=== PATIENT | male | born 1990 | race Caucasian/White ===

== ENCOUNTER 2024-12-19 19:09 | Emergency (ER) | payer OTHER, SELFPAY ==
--- NOTE | ~2024-12-19 | CT_ITS ---
CLINICAL HISTORY: neck pain CT CERVICAL SPINE WITHOUT CONTRAST COMPARISON: None provided. FINDINGS: No evidence of an acute fracture or dislocation within the cervical spine. Straightening of the normal cervical lordosis is noted. Vertebral body heights and alignment are otherwise maintained. Shallow disc protrusions are suspected at C5-C6, C6-C7, and C7-T1 on sagittal image 24. No significant central canal stenosis. No prevertebral soft tissue swelling. No pneumothorax in the lung apices. Apical fibrotic changes are present. IMPRESSION: 1. No evidence of an acute fracture or dislocation. 2. Mild degenerative disc disease is noted. This document has been electronically signed by: Herberth Whitley M.D. on 12/19/2024 22:55:21
[2024-12-19 19:13] VITALS: BP 120/72; PULSE 58; RESP 16; TEMP 36.7; O2SAT 98; BMI 21.7
--- NOTE | 2024-12-19 19:14 | ED_ITS ---
HPI - Neck Pain/Injury General Chief Complaint: General Medical Stated Complaint: camping, woke up with stiff sore neck, worse now Time Seen by Provider: 12/19/24 21:17 Source: patient and family (patient's ) Mode of arrival: ambulatory Limitations: no limitations History of Present Illness ED Provider: Stephy Meadows PA-C HPI Narrative: Patient is a 34 year old assigned male at with no reported medical history presenting to the emergency department today with neck pain. Patient states that he woke up with his neck feeling somewhat stiff and it had gotten much worse as the day went on. Patient states that he did have a recent camping trip but this pain was somewhat present before his trip and now it is much worse. Patient denies any dizziness, lightheadedness, abdominal pain, nausea, vomiting, fever, chills, blurry vision, double vision, loss of vision, chest pain, difficulty breathing, shortness of breath, back pain, night sweats, pain with urination, increased urinary frequency, increased urinary urgency, blood in his urine or stool, syncope or a near syncopal episode, recent trauma or falls, bowel incontinence, bladder incontinence, or any other complaints at this time. Related Data Previous Rx's ?Medication ?Instructions ?Recorded cyclobenzaprine 5 mg tablet 5 mg PO TID PRN muscle spa sm 7 12/19/24 days #21 tabs naproxen 500 mg tablet 500 mg PO BID 7 days #14 tab s 12/19/24 omeprazole 20 mg capsule,delayed 20 mg PO DAILY #7 cap s 12/19/24 release prednisone 20 mg tablet 20 mg PO DAILY 7 days #7 tab s 12/19/24 Allergies Allergy/AdvReac Type Severity Reaction Status Date / Time No Known Allergies Allergy Verified 12/19/24 19:17 Review of Systems 2 Constitutional: Constitutional: Reports no additional constitutional complaints, Denies chills, Denies fever(s) and Denies night sweats Eyes: Eyes: Reports no additional eye complaints, Denies blurry vision, Denies change in vision, Denies diplopia, Denies eye discharge, Denies loss of vision and Denies eye pain ENT: Denies dizziness and Reports neck pain Cardiovascular: Cardiovascular: Reports no additional cardiovascular complaints, Denies chest pain, Denies lightheadedness, Denies Loss of Consciousness and Denies dyspnea Respiratory: Respiratory: Reports no additional respiratory complaints and Denies dyspnea Gastrointestinal: Gastrointestinal: Reports no additional gastrointestinal complaints, Denies abdominal pain, Denies melena, Denies hematochezia, Denies change in bowel habits and Denies change in stool character Genitourinary: Genitourinary: Reports no additional male genitourinary complaints, Denies hematuria, Denies oliguria, Denies difficulty urinating, Denies dysuria, Denies urinary frequency, Denies urinary hesitancy, Denies urinary incontinence and Denies urinary urgency Musculoskeletal: Musculoskeletal: Reports no additional musculoskeletal complaints, Reports neck pain, Denies numbness and Denies tingling Neurologic: Denies dizziness, Denies loss of vision, Denies numbness and Denies tingling Psychiatric: Psychiatric: Reports no additional psychiatric complaints Endocrine: Endocrine: Reports no additional endocrine complaints Hematologic/Lymphatic: Hematologic/Lymphatic: Reports no additional hematologic/lymphatic complaints Allergic/Immunologic: Allergic/Immunologic: Reports no additional allergic/immunologic complaints PMFSH Past Medical History Attestation statement: The following information was validated with the patient. (all information validated with the patient's ) Source: old records reviewed, obtained from family (patient's provided additional history and confirmed the history provided by the patient.) and nursing notes reviewed Physical Exam 2 Vital Signs: Vital Signs: Last Vital Signs Temp 98.3 F 12/19/24 23:06 Pulse 51 12/19/24 23:06 Resp 16 12/19/24 23:06 BP 116/71 12/19/24 23:06 Pulse Ox 99 12/19/24 23:06 O2 Del Method Room Air 12/19/24 23:06 BMI result Body Mass Index 21.7 Const: General: cooperative, no acute distress, alert and awake Nutritional Appearance: well nourished Orientation/consciousness: patient oriented x3 HEENT: Head: Yes normal to inspection and Yes atraumatic Ears: hearing grossly normal bilaterally and external ears normal General nose exam: Normal external nose present, no nasal discharge noted and no epistaxis Face and sinus: Yes normal facial exam, No abrasion and No laceration Mouth: Normal oral and palatal mucosa present, no drooling and no muffled voice Eyes: General: appearance normal, both eyes and all related structures P eriorbital: periorbital findings normal Eyelids: Yes eyelids normal C onjunctivae: conjunctivae normal Pupils: Equal, round and reactive pupils present EOM: EOMs intact bilaterally Neck: Other: limited ROM of the neck secondary to pain - specifically side to side. Up and down movement normal. Neck: Yes normal visual inspection and Yes no lymphadenopathy Resp: Effort & Inspection: normal respiratory effort and able to speak in complete sentences Neuro: General: patient oriented x3, moves all extremities and CN's II-XI intact bilaterally Cranial nerves: Yes Equal, round and reactive pupils present Cognition (Neuro): normal cognition Extrem: General: Yes normal to inspection, Yes full ROM and Yes capillary refill normal Psych: Appearance: grossly normal Mental Status: mental status grossly normal Affect: normal affect Attitude: cooperative Thought process: N ormal thought process present Thought content: Normal thought content present Insight: Good insight present (Psych) Course Course Course Narrative: This is an RME: Additional HPI, ROS, PE not included below will be deferred to primary provider. RME assessment and note performed by: Cindy Brown PA-C This is a [id number]-male, with no known medical problems, who presents to the ER iwht complaints of neck pain since this morning. Reports that he was camping, slept on a flat mattress. Reports that this is the worst pain he has ever had. No fevers. No sick contacts. No hx of neck problems. Tried ibuprofen twice today without relief. He states he goes camping alot. Pt with obvious right sided neck spasm noted. unable to turn head to the right. Plan: Labs, further ER eval needed Medications Administered Discontinued Medications Generic Name Dose Route Start Last Admin Trade Name Davidq PRN Reason Stop Dose Admin Diazepam 2 mg 12/19/24 21:18 12/19/24 21:32 Diazepam 2 Mg Tablet PO 12/19/24 21:19 2 mg ONCE ONE Administration Medical Decision Making Medical Decision Making MDM Narrative: Patient is a 34 year old assigned male at with no reported medical history presenting to the emergency department today with neck pain. Patient's physical exam was as noted in the physical exam portion of this note. Patient's blood work was unremarkable. Patient's CT of the cervical spine showed no acute process but did show slight bulging of cervical discs as well as arthritis. Patient's clinical presentation is most consistent with a muscle spasm. Patient has no evidence of meningitis or other signs of lyme. I explained my physical exam findings as well as all test results to the patient and the patient's . I answered all questions asked by the patient and the patient's . Patient received PO valium which, upon re-evaluation, he stated it helped his symptoms some. I stressed the importance of the patient taking his medication as directed (either prescribed or as the over the counter packaging recommends). I stressed the importance of the patient following up with his primary care provider and given his c-spine CT findings - a quality review specialist. I stressed the importance of the patient returning to the emergency department immediately if his symptoms were to worsen or if he were to develop any dizziness, shortness of breath, difficulty breathing, chest pain, blurry vision, loss of vision, nausea, vomiting, abdominal pain, fever, chills, back pain, or any other complaints. Patient and the patient's verbalized agreement and understanding with this treatment plan and discharge. Differential Diagnosis Differential Diagnoses: The differential diagnosis associated with the presentation includes Cervical strain Cervical sprain Cervical arthritis Neck pain Cervical fracture Admission/Observation Consideration of admission/observation: Escalation of care including admission/observation considered Patient would have been admitted to the hospital had his work up had any findings where hospital admission was appropriate and his clinical presentation warranted hospital admission. Lab Data MDM Lab Attestation statement: I reviewed the patient's lab results. My interpretation of these studies and their corresponding values is that they are grossly normal. 12/19/24 19:29 12/19/24 19:29 Labs: Lab Results 12/19/24 Range/Units 19:29 WBC 6.4 (4.8-10.8) X10*3/uL RBC 4.65 (4.60-5.80) X10*6/uL Hgb 13.9 L (14.0-18.0) g/dl Hct 40.5 L (42.0-52.0) % MCV 87.1 (80.0-98.0) fL MCH 29.9 (27.0-33.0) pg MCHC 34.3 (31.0-36.0) g/dl RDW 12.6 (11.0-16.0) % Plt Count 214 (160-400) X10*3/uL MPV 9.5 (9.4-12.4) fL Immature Gran % (Auto) 0.2 (0.0-0.4) % Neut % (Auto) 52.8 (45-73) % Lymph % (Auto) 36.5 (20-40) % [place] % (Auto) 7.3 (2-11) % Eos % (Auto) 2.3 (0-4) % Baso % (Auto) 0.9 (0-2) % Lymph # (Auto) 2.4 (1.2-4.9) X10*3/uL [place] # (Auto) 0.5 (0.1-1.2) X10*3/uL Eos # (Auto) 0.2 (0.0-0.4) X10*3/uL Baso # (Auto) 0.1 (0.0-0.2) X10*3/uL Abs Immat Gran (auto) 0.01 (0.00-0.03) X10*3/uL Absolute Neuts (auto) 3.4 (2.0-8.3) x10*3/uL Absolute Nucleated RBC 0.000 (0.0-0.012) X10*3/uL Nucleated RBC % (auto) 0.0 (0.0-0.2) /100WBC ESR 2 (0-15) MM/HR Sodium 140 (135-145) mmol/L Potassium 4.3 (3.3-5.1) mmol/L Chloride 109 H (96-108) mmol/L Carbon Dioxide 23 (22-29) mmol/L Anion Gap 12 (12-20) BUN 23 H (9-16) mg/dL Creatinine 0.89 (0.5-1.4) mg/dL Estim Creat Clear Calc 124.5 Estimated GFR > 60 Random Glucose 79 (60-115) mg/dL Calcium 9.3 (8.4-10.2) mg/dL Total Bilirubin 0.6 (0.0-1.0) mg/dL Direct Bilirubin 0.2 (0.0-0.5) mg/dL AST 29 (5-37) U/L ALT 22 (0-40) U/L Alkaline Phosphatase 49 (39-117) U/L C-Reactive Protein < 0.04 (< or = 0.50) mg/dL Total Protein 6.9 (6.5-8.0) g/dL Albumin 4.7 (3.5-5.0) g/dL Independent Interpretation I performed an independent interpretation of an: CT Scan Interpretation: My interpretation is in agreement with the radiologist's impression of this imaging study. L Report Number: [id number]: Total DLP = 390.00 mGy-cm CLINICAL HISTORY: neck pain CT CERVICAL SPINE WITHOUT CONTRAST COMPARISON: None provided. FINDINGS: No evidence of an acute fracture or dislocation within the cervical spine. Straightening of the normal cervical lordosis is noted. Vertebral body heights and alignment are otherwise maintained. Shallow disc protrusions are suspected at C5-C6, C6-C7, and C7-T1 on sagittal image 24. No significant central canal stenosis. No prevertebral soft tissue swelling. No pneumothorax in the lung apices. Apical fibrotic changes are present. IMPRESSION: 1. No evidence of an acute fracture or dislocation. 2. Mild degenerative disc disease is noted. This document has been electronically signed by: Herberth Whitley M.D. on 12/19/2024 22:55:21 Dictated By: Herberth Whitley MD Signed By: Electronically signed by Herberth Whitley MD 12/19/24 0611 Radiology Impression Discussion of test interpretation with radiology: I have reviewed the radiologist's reading. Independent Historian Clinical information obtained from an independent historian. History obtained from or confirmed by: Spouse (Patient's provided additional history and confirmed the history provided by the patient. ) Prescription Management I considered prescription management with: Pain Medication (patient prescribed pain medication) Discharge Plan Discharge Clinical Impression: Muscle spasm, Bulge of cervical disc without myelopathy, Cervical muscle strain Patient Disposition: Home, Self-Care Instructions: Cervical Sprain (ED), Muscle Spasm (ED), Neck Pain (ED) Additional Instructions: Your CT of the c-spine showed evidence of very mild disc protrusion (bulging) as well as arthritis. Your clinical presentation is most consistent with a spasm however, you should follow up with a quality review specialist for these chronic findings on your scan. Follow up with your primary care provider. Return to the emergency department immediately if your symptoms worsen or if you develop any numbness, tingling, dizziness, shortness of breath, difficulty breathing, chest pain, blurry vision, loss of vision, nausea, vomiting, abdominal pain, fever, chills, back pain, or any other complaints. Please see the information below about our Patient Portal. If you are not yet enrolled in the [facility] Patient Portal, you will receive an enrollment email invitation following your visit to any [facility] [place] [place] setting. You may also self-enroll in the Patient Portal by visiting our website: [email or web address] The following information is required to access the Patient Portal: - Your [facility] [place] [place] Medical Record Number - Your personal home email address (must match what is in your electronic medical record, Registration staff can assist with this) - Name - Date of Capabilities of the Patient Portal: - Message some providers - View upcoming appointments - Access your health summary, medical history, and visit history - View current conditions and allergies - View procedure and lab results - View your medications, including guidelines, side effects, and precautions - Complete pre-appointment questionnaires requested by your provider - Ready summary reports of your office visits and procedures To access the Patient Portal Mobile [employer], follow these directions: - Search [employer] in the [employer] Store or [employer] Store - Download the Niru - Search for [facility] - Enter your login/password Prescriptions: New cyclobenzaprine 5 mg tablet 5 mg PO TID PRN (Reason: muscle spasm) 7 Days Qty: 21 0RF prednisone 20 mg tablet 20 mg PO DAILY 7 Days Qty: 7 0RF naproxen 500 mg tablet 500 mg PO BID 7 Days Qty: 14 0RF omeprazole 20 mg capsule,delayed release(DR/EC) 20 mg PO DAILY Qty: 7 0RF Referrals: [facility] [place] [place] [facility] [Provider Group, Neurosurgery] Referral Note: Call to establish and follow up with a quality review specialist. Cj Mckeon MD [Primary Care Provider, Internal Medicine] Stand Alone Forms: Work/School Release Interventions: ED Discharge Assessment Last Done: 12/19/24 23:06 Discharge Date/Time: 12/19/24 23:22 Print Language: Danish
[2024-12-19 19:33] LABS: MANUAL DIFF FLAG NO
[2024-12-19 19:35] LABS: Basophils Absolute Auto 0.1 X10*3/uL (0.0-0.2); Basophils Percent Auto 0.9 % (0-2); Eosinophils Absolute Auto 0.2 X10*3/uL (0.0-0.4); Eosinophils Percent Auto 2.3 % (0-4); Hematocrit 40.5 % (42.0-52.0); Hemoglobin 13.9 g/dl (14.0-18.0); Imm Gran Abs Auto 0.01 X10*3/uL (0.00-0.03); Imm Gran Pct Auto 0.2 % (0.0-0.4); Lymphocytes Absolute Auto 2.4 X10*3/uL (1.2-4.9); Lymphocytes Percent Auto 36.5 % (20-40); Mean Corpuscular HGB Conc 34.3 g/dl (31.0-36.0); Mean Corpuscular Hemoglobin 29.9 pg (27.0-33.0); Mean Corpuscular Volume 87.1 fL (80.0-98.0); Mean Platelet Volume 9.5 fL (9.4-12.4); Monocytes Absolute Auto 0.5 X10*3/uL (0.1-1.2); Monocytes Percent Auto 7.3 % (2-11); Neutrophils Absolute Auto 3.4 x10*3/uL (2.0-8.3); Neutrophils Percent Auto 52.8 % (45-73); Platelet Count 214 X10*3/uL (160-400); Red Blood Count 4.65 X10*6/uL (4.60-5.80); Red Cell Distribution Width 12.6 % (11.0-16.0); White Blood Count 6.4 X10*3/uL (4.8-10.8)
[2024-12-19 19:54] LABS: Alanine Aminotransferase 22 U/L (0-40); Albumin Level 4.7 g/dL (3.5-5.0); Alkaline Phosphatase 49 U/L (39-117); Anion Gap 12 (12-20); Aspartate Amino Transferase 29 U/L (5-37); Bilirubin Direct 0.2 mg/dL (0.0-0.5); Bilirubin Total 0.6 mg/dL (0.0-1.0); Blood Urea Nitrogen 23 mg/dL (9-16); C Reactive Protein < 0.04 mg/dL (< or = 0.50); Calcium 9.3 mg/dL (8.4-10.2); Carbon Dioxide 23 mmol/L (22-29); Chloride 109 mmol/L (96-108); Creatinine Clr Calc Pharmacy 124.5; Estimated Glomerular Filt Rate > 60; Glucose Random 79 mg/dL (60-115); Potassium 4.3 mmol/L (3.3-5.1); Sodium 140 mmol/L (135-145); Total Protein 6.9 g/dL (6.5-8.0)
[2024-12-19 20:03] VITALS: BP 117/60; PULSE 52; RESP 16; TEMP 36.6; O2SAT 99
[2024-12-19 20:12] LABS: Erythrocyte Sedimentation Rate 2 MM/HR (0-15)
[2024-12-19] MEDS: diazePAM 2 MG TABLET PO (21:32)
[2024-12-19 22:00] VITALS: BP 116/71; PULSE 51; RESP 16; TEMP 36.8; O2SAT 99
[2024-12-19 23:06] VITALS: BP 116/71; PULSE 51; RESP 16; TEMP 36.8; O2SAT 99
[2024-12-21 16:33] LABS: Lyme Abs Screen <0.90 index
[2024-12-30 14:34] LABS: Babesia IgG <1:64 titer (<1:64); Babesia IgM <1:20 titer (<1:20)
[2024-12-31 14:53] LABS: A. Phagocytophilum Ab IgG <1:64 (<1:64); A. Phagocytophilum Ab IgM <1:20 (<1:20); E. Chaffeensis Ab IgG <1:64 (<1:64); E. Chaffeensis Ab IgM <1:20 (<1:20)
== END 2024-12-19 23:22 | disposition home or self-care (01) ==
PROVIDERS: Physician Assistant Medical; Emergency Provider Emergency Medicine Emergency Medical Services; PCP Internal Medicine
DX: M62.838 Other muscle spasm (principal); M50.03 Cervical disc disorder with myelopathy, cervicothoracic region; S16.1XXA Strain of muscle, fascia and tendon at neck level, initial encounter; X50.1XXA Overexertion from prolonged static or awkward postures, initial encounter; Y93.89 Activity, other specified; Y92.833 Campsite as the place of occurrence of the external cause; Y99.8 Other external cause status
CPT/HCPCS: 36415; 72125; 80048; 80076; 85025; 85652; 86140; 86617; 86618; 86666; 86753; 99284

== ENCOUNTER → 2024-12-19 21:35 | Outpatient (BNV) | payer OTHER, SELFPAY | PROVIDERS: PCP Internal Medicine; Visit Provider Radiology Diagnostic Radiology | DX: M54.2 Cervicalgia (principal) | CPT/HCPCS: 72125 ==